=== PATIENT | male | born 1980 | race Caucasian/White ===

== ENCOUNTER 2021-12-15 19:22 | Emergency (ER) | payer OTHER, SELFPAY ==
[2021-12-15 19:30] VITALS: BP 143/80; PULSE 73; RESP 18; TEMP 37.2; O2SAT 98
--- NOTE | 2021-12-15 19:40 | ED.WOUNDLAC ---
HPI - Wound/Laceration General Chief Complaint: Wound/Laceration Stated Complaint: laceration left finger Time Seen by Provider: 12/15/21 19:40 Source: patient Mode of arrival: ambulatory Limitations: no limitations History of Present Illness HPI narrative: 41-year-old male presented for complaint of laceration to the left index finger, about 45 minutes prior to arrival. He sliced the finger open with a hunting knife while whittling a stick. He applied pressure and came to be seen. Did not cleanse the area. Unsure of last tetanus. Full ROM to the finger, denies numbness or weakness of the finger. Related Data Home Medications Medication Instructions Recorded Confirmed methadone 150 mg DAILY 12/15/21 12/15/21 Allergies Allergy/AdvReac Type Severity Reaction Status Date / Time No Known Allergies Allergy Verified 12/15/21 19:35 Review of Systems Review of Systems: CONSTITUTIONAL: Denies body aches, fever, chills, or sweats. CARDIOVASCULAR: Denies chest pain, palpitations, or edema. RESPIRATORY: Denies dyspnea. GASTROINTESTINAL: Denies abdominal pain, nausea, vomiting, or diarrhea. SKIN: laceration to finger MUSCULOSKELETAL: Denies back pain, joint pain, or myalgia. NEUROLOGIC: Denies headache, numbness, tingling, or weakness. PMFSH Comments At time of signature, I have reviewed and agree with nursing past medical, surgical, social and family history unless otherwise noted. Please see nursing chart for further information. There is no relevant family history pertinent to the presenting complaint Exam Narrative: GENERAL: appears in pain EYES: conjunctivae clear, and EOMI. ENT: Mucous membranes moist. CHEST: Clear to auscultation. No respiratory distress. HEART: Regular rate and rhythm. SKIN: Left index finger laceration approx 2cm length at radial aspect of proximal phalanx, no joint involvement, bleeding controlled; full ROM to the finger, sensation intact, cap refill <3seconds NEURO: Alert and oriented x3. PSYCH: Normal mood and affect Course Course Emergency Course: Patient is aware of diagnosis, understands and agrees to treatment plan. Anticipatory guidance given. Patient agrees to follow-up as directed and is aware of reasons to seek care at the emergency department. Portions of this record may have been created with voice recognition software Level of Care: Express Care Visit Vital Signs Vital signs: Vital Signs Temperature 98.9 F 12/15/21 19:30 Pulse Rate 73 12/15/21 19:30 Respiratory Rate 18 12/15/21 19:30 Blood Pressure 143/80 H 12/15/21 19:30 Pulse Oximetry 98 12/15/21 19:30 Oxygen Delivery Room Air 12/15/21 19:30 Temperature 98.9 F 12/15/21 19:30 Pulse Rate 73 12/15/21 19:30 Respiratory Rate 18 12/15/21 19:30 Blood Pressure 143/80 H 12/15/21 19:30 Pulse Oximetry 98 12/15/21 19:30 Oxygen Delivery Room Air 12/15/21 19:30 Reviewed Procedures Laceration Laceration 1: Date: 12/15/21 Site: hand (left 2nd digit) Size (cm): 2 Description: linear, irregular and clean Depth: simple, single layer Local Anesthetic: lidocaine 1% Amount of anesthesia used (mL): 5 ====== Skin Level ====== Skin layer closed with: nylon Size (cm): 4-0 Number of sutures: 5 Technique: simple, interrupted ====== Subcutaneous Layer ====== ====== Muscle Layer ====== ====== Tendon Layer ====== Dressing: Wound cleansed and irrigated prior to repair, digital block provided adequate anesthesia. Pt tolerated well. MDM - Wound/Laceration MDM Narrative Medical decision making narrative: Laceration repaired. Telfa and coban applied with splint per RN. Advised supportive measures and signs/symptoms to go to the ER. Pt is appropriate for outpt treatment and f/u. Differential Diagnosis Differential diagnosis: Likely laceration, abrasion and avulsion of skin Discharge P
--- NOTE | 2021-12-15 19:48 | PC.NURSE ---
Wound irrigated with sterile water. Pt soaking finger in warm, soapy water.
[2021-12-15] MEDS: TETANUS,DIPHTHERIA,AC PERTUSSIS ADULT (0.5 ML) BOOSTRIX IM (19:53)
== END 2021-12-15 20:54 | disposition home or self-care (01) ==
PROVIDERS: Emergency Provider Nurse Practitioner Family
DX: S61.211A Laceration without foreign body of left index finger without damage to nail, initial encounter (principal); W26.0XXA Contact with knife, initial encounter; Z23 Encounter for immunization
CPT/HCPCS: 12001; 90471; 90715; 99213; G0463

== ENCOUNTER 2022-08-28 09:56 | Emergency (ER) | payer BC, OTHER, SELFPAY ==
--- NOTE | 2022-08-28 10:01 | ED.URI ---
HPI - URI/Sore Throat General Chief Complaint: Upper Respiratory Infection Stated Complaint: Sore Throat Time Seen by Provider: 08/28/22 10:01 Source: patient and RN notes reviewed History of Present Illness HPI Narrative: Patient is a 42-year-old male who presents to urgent care with complaints of a sore throat since Sunday. Patient reports nausea but denies vomiting or fever. States he has been taking TheraFlu for his symptoms. Denies any ill exposures. No other acute complaints. No acute distress noted. Patient aware of the plan of care. Some parts of this dictation were generated by voice recognition software and may contain typographical and/or grammatical inaccuracies. Related Data Home Medications Medication Instructions Recorded Confirmed methadone 150 mg DAILY 12/15/21 12/15/21 Allergies Allergy/AdvReac Type Severity Reaction Status Date / Time No Known Allergies Allergy Verified 12/15/21 19:35 Review of Systems Review of Systems: CONSTITUTIONAL: Denies fever, chills, or sweats. EYES: Denies visual changes, redness, or discharge. ENT: Denies rhinorrhea, congestion, otalgia. Reports of sore throat CARDIOVASCULAR: Denies chest pain, palpitations, or edema. RESPIRATORY: Denies cough or dyspnea. GASTROINTESTINAL: Reports of nausea without vomiting or abdominal discomfort GENITOURINARY: Denies dysuria or hematuria. SKIN: Denies rash or itching. MUSCULOSKELETAL: Denies back pain, joint pain, or myalgia. NEUROLOGIC: Denies headache, numbness, or weakness. All other systems reviewed are negative, except as documented in HPI. PMFSH Comments At the time of my signature, I reviewed and agree with the nursing past medical, surgical, social, and family history. There is no relevant family history pertinent to the patient complaint. Exam Narrative: GENERAL: This is a well-nourished, well-developed patient, in no apparent distress. HEAD: normocephalic, atraumatic. EYES: PERRL. Sclera clear/white. Vision is grossly intact. EARS: External ears normal, auditory canals clear and without drainage, TMs normal without perforation. Hearing grossly intact. NOSE: External nose normal with no obvious nasal discharge, nares without redness, no rhinorrhea. THROAT: Mucous membranes moist, moderate erythema to posterior pharynx with exudate on the left.. Dry NECK: Neck supple, non-tender without lymphadenopathy, masses or thyromegaly. RESPIRATORY: Clear to auscultation. Breath sounds equal bilaterally. No wheezes, rales, or rhonchi. SKIN: warm, intact with no suspicious lesions or rash, good texture and turgor. NEURO: awake, alert, and oriented to person, place and time. There were no obvious focal neurologic abnormalities. EXTREMITIES: No clubbing, cyanosis, or edema. Course Course Level of Care: Express Care Visit Vital Signs Vital signs: Vital Signs Temperature 97.4 F L 08/28/22 10:05 Pulse Rate 85 08/28/22 10:05 Respiratory Rate 18 08/28/22 10:05 Blood Pressure 106/82 08/28/22 10:05 Pulse Oximetry 98 08/28/22 10:05 Oxygen Delivery Room Air 08/28/22 10:05 Temperature 97.4 F L 08/28/22 10:05 Pulse Rate 85 08/28/22 10:05 Respiratory Rate 18 08/28/22 10:05 Blood Pressure 106/82 08/28/22 10:05 Pulse Oximetry 98 08/28/22 10:05 Oxygen Delivery Room Air 08/28/22 10:05 Reviewed MDM - URI/Sore Throat MDM Narrative Medical decision making narrative: Reviewed lab results with the patient. He is aware that strep swab was negative. Educated patient on culture we will call within 72 hours if culture is positive antibiotics are necessary. Advised patient to complete the oral steroid regimen as prescribed. Use a daily antihistamine such as Zyrtec or Claritin. Use Chloraseptic/Tylenol/ibuprofen as needed for pain or discomfort. Follow-up with your PCP within 2-5 days or for worsening symptoms or failure to improve. Differential Diagnosis Differential diagnosis: Likely upper respir
[2022-08-28 10:05] VITALS: BP 106/82; PULSE 85; RESP 18; TEMP 36.3; O2SAT 98
== END 2022-08-28 10:45 | disposition home or self-care (01) ==
PROVIDERS: Emergency Provider Nurse Practitioner Family; PCP Family Medicine
DX: J02.9 Acute pharyngitis, unspecified (principal); Z86.14 Personal history of Methicillin resistant Staphylococcus aureus infection
CPT/HCPCS: 87081; 87880; 99213; G0463